=== PATIENT | female | born 1940 | race Caucasian/White ===

== ENCOUNTER 2017-07-28 20:20 | Emergency (ER) | payer OTHER ==
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
[2017-07-28] MEDS ORDERED: HYDROCOD/APAP 5/325 PREPACK#6 BTL TAKEHOME ONE (22:36)
[2017-07-28] MEDS ORDERED: IBUPROFEN 200 MG TAB PO ONE (22:37)
[2017-07-28 22:51] VITALS: BP 150/68
== END 2017-07-28 22:51 | disposition home or self-care (01) ==
DX: S13.9XXA Sprain of joints and ligaments of unspecified parts of neck, initial encounter (principal); S43.402A Unspecified sprain of left shoulder joint, initial encounter; I10 Essential (primary) hypertension; Z85.3 Personal history of malignant neoplasm of breast; Z85.72 Personal history of non-Hodgkin lymphomas; Z87.891 Personal history of nicotine dependence; V49.40XA Driver injured in collision with unspecified motor vehicles in traffic accident, initial encounter; Y92.410 Unspecified street and highway as the place of occurrence of the external cause; Y99.8 Other external cause status; Y93.89 Activity, other specified

== ENCOUNTER 2017-07-29 12:43 | Emergency (ER) | payer OTHER ==
[2017-07-29] MEDS ORDERED: ONDANSETRON 4 MG/2 ML VIAL IVP ONE (13:04)
[2017-07-29] MEDS ORDERED: ONDANSETRON 4 MG/2 ML VIAL ONE (13:05)
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
[2017-07-29 13:34] LABS: PLATELET COUNT 320 10^3/uL (150-400)
[2017-07-29] MEDS ORDERED: IOPAMIDOL (ISOVUE-300) 100 ML BTL ONE (13:54)
[2017-07-29] MEDS ORDERED: MECLIZINE HCL 25 MG TAB PO ONE (14:51)
[2017-07-29 16:12] VITALS: BP 125/78
== END 2017-07-29 16:11 | disposition home or self-care (01) ==
DX: S80.02XA Contusion of left knee, initial encounter (principal); R42 Dizziness and giddiness; I10 Essential (primary) hypertension; Z85.3 Personal history of malignant neoplasm of breast; Z85.028 Personal history of other malignant neoplasm of stomach; V49.40XA Driver injured in collision with unspecified motor vehicles in traffic accident, initial encounter; Y92.410 Unspecified street and highway as the place of occurrence of the external cause; Y99.8 Other external cause status; Y93.89 Activity, other specified
CPT/HCPCS: 96374; J2405; Q9967

== ENCOUNTER → 2018-02-06 | Outpatient (CLI) | payer OTHER | LOC: BMCIMAGING 14:00 | PROVIDERS: ATTEND Physical Medicine & Rehabilitation | DX: Z13.820 Encounter for screening for osteoporosis (principal); Z78.0 Asymptomatic menopausal state; M54.5 Low back pain; M81.0 Age-related osteoporosis without current pathological fracture ==

== ENCOUNTER → 2018-06-19 | Outpatient (CLI) | payer OTHER | LOC: FIMAGING 17:24 | PROVIDERS: ATTEND Internal Medicine Critical Care Medicine | DX: R06.02 Shortness of breath (principal); J40 Bronchitis, not specified as acute or chronic ==

== ENCOUNTER → 2018-07-31 | Outpatient (CLI) | payer OTHER | LOC: FIMAGING 09:23 | PROVIDERS: ATTEND Internal Medicine | DX: R80.9 Proteinuria, unspecified (principal) ==